=== PATIENT | male | born 1955 | race Two or more races ===

== ENCOUNTER → 2024-08-20 | Outpatient (CLI) | payer OTHER, MEDICAID, SELFPAY ==
[2024-08-20 07:54] LABS: Collection Type, Urine Clean Catch; Squamous Epithelial Cell,Urine 0 /hpf (0-5)
[2024-08-20 08:33] LABS: Basophils % (Auto) 0 % (0-2.5); Eosinophils # (Auto) 0.2 Thou/mm3 (0.0-0.5); Eosinophils % (Auto) 3 % (0-10); Hematocrit 44.9 % (41.0-53.0); Hemoglobin 15.7 g/dL (13.5-16.0); Immature Granulocytes % (Auto) 1 % (0-0); Immature Granulocytes Auto 0.06 Thou/mm3 (0.00-0.00); Lymphocytes # (Auto) 2.7 Thou/mm3 (1.0-4.8); Lymphocytes % (Auto) 34 % (10-50); Mean Corpuscular Hemoglobin 31.2 pg (25.0-35.0); Mean Corpuscular Volume 89 fL (80-100); Monocytes # (Auto) 0.6 Thou/mm3 (0.0-0.8); Monocytes % (Auto) 8 % (0-12); Neutrophils # (Auto) 4.4 Thou/mm3 (1.8-7.7); Neutrophils % (Auto) 55 % (37-80); Nucleated Red Blood Cell % 0 /100 WBC (0); Platelet Count 233 Thou/mm3 (140-440); RDW Standard Deviation 42.4 fL (35.1-43.9); Red Blood Count 5.04 Miln/mm3 (4.50-5.90); White Blood Count 8.1 Thou/mm3 (3.8-10.6)
[2024-08-20 08:52] LABS: Bacteria,Urine Rare; Bilirubin,Urine Negative (Negative); Blood,Urine Negative (Negative); Clarity,Urine Clear (Clear/Hazy); Color,Urine Yellow (Lt Yel-Yel); Glucose, Urine Negative (Negative); Ketones,Urine Negative (Negative); Leukocyte Esterase,Urine Positive (Negative); Nitrite,Urine Negative (Negative); PH,Urine 5.5 (5.0-7.0); Protein,Urine 1+ (Neg - Trace); RBC,Urine 4 /hpf (0-3); Specific Gravity,Urine 1.035 (1.001-1.035); Urobilinogen,Urine Negative mg/dL (0.0-1.0); WBC,Urine 7 /hpf (0-5)
[2024-08-20 08:54] LABS: Prostate Specific Antigen 0.66 ng/mL (0-4.00)
[2024-08-20 08:58] LABS: Alanine Aminotransferase 92 U/L (10-49); Albumin, Serum 4.7 gm/dL (3.4-4.8); Alkaline Phosphatase 74 U/L (46-116); Anion Gap 6 (7-16); Aspartate Amino Transferase 60 U/L (0-34); BUN/Creatinine Ratio 23 Ratio (12-20); Bilirubin,Total 0.9 mg/dL (0.3-1.2); Blood Urea Nitrogen 21 mg/dL (9-23); Calcium 9.5 mg/dL (8.3-10.6); Calcium (Corrected) 9.5 mg/dL (8.5-10.1); Carbon Dioxide 29.2 mMol/L (20.0-31.0); Cardiac Risk Estimate 3.5 RATIO (4.0-6.7); Chloride 106 mMol/L (98-107); Cholesterol 191 mg/dL (132-200); Creatinine (Component) 0.9 mg/dL (0.6-1.3); Globulin 2.4 gm/dL (2.3-3.5); Glucose 102 mg/dL (74-106); HDL Cholesterol 54 mg/dL (40-60); LDL Cholesterol,Calculated 113 mg/dL (0-130); Osmolality,Calculated 284 (275-295); Sodium 141 mMol/L (136-145); Thyroid Stimulating Hormone 3.72 uIU/mL (0.55-4.78); Total Protein 7.1 gm/dL (5.7-8.2); Triglycerides 120 mg/dL (30-150); eGFR > 60 See Note
[2024-08-20 09:18] LABS: Vitamin B12 1822 pg/mL (211-911)
== END | disposition home or self-care (01) ==
PROVIDERS: PCP Family Medicine; Referring Provider Family Medicine; Visit Provider Family Medicine
DX: Z00.00 Encounter for general adult medical examination without abnormal findings (principal); I10 Essential (primary) hypertension; N40.0 Benign prostatic hyperplasia without lower urinary tract symptoms; R53.83 Other fatigue; E78.2 Mixed hyperlipidemia
CPT/HCPCS: 36415; 80053; 80061; 81001; 82607; 84153; 84443; 85025

== ENCOUNTER 2025-02-18 17:23 | Emergency (ER) | payer OTHER, MEDICAID, SELFPAY ==
[2025-02-18 17:40] VITALS: BP 162/93; PULSE 89; RESP 20; TEMP 37.2; O2SAT 97; BMI 31.0
--- NOTE | 2025-02-18 17:45 | EKG_ITS ---
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[id number] Requested By: Jose Yoo Order Number: [id number] Reading MD: Jose Yoo Measurements Intervals [place] Rate: 97 P: 24 VT: 148 QRS: -27 QRSD: 87 T: 19 QT: 319 QTc: 406 Interpretive Statements SINUS RHYTHM LOW QRS VOLTAGE IN PRECORDIAL LEADS [QRS DEFLECTION < 1.0 mV IN CHEST LEADS] LEFT VENTRICULAR HYPERTROPHY AND ST-T CHANGE [VOLTAGE CRITERIA PLUS ST/T ABNORMALITY] POSSIBLE ANTERIOR MYOCARDIAL INFARCTION , PROBABLY OLD [30 ms Q WAVE IN V3/V4, OR R < 0.2 mV IN V4] Compared to ECG 10/26/2023 20:41:55 ST (T wave) deviation now present Myocardial infarct finding now present Sinus bradycardia no longer present /store/S0/[id number].pdf
--- NOTE | 2025-02-18 17:46 | PD.EDRME ---
Rapid Medical Screening Exam RME Arrival date/time: 02/18/25 17:23 69-year-old male with no known medical history presents to the emergency room with a chief complaint of abdominal pain, chest pain, vomiting x 1 day I have greeted and performed a focused initial assessment of this patient. A comprehensive ED assessment and evaluation of the patient, analysis of all test results, and completion of the medical decision making process will be conducted by additional ED providers. Chief Complaint: Abdominal Pain Vital signs: Vital Signs Temperature 99 F 02/18/25 17:40 Pulse Rate 89 02/18/25 17:40 Respiratory Rate 20 02/18/25 17:40 Blood Pressure 162/93 H 02/18/25 17:40 Pulse Oximetry (%) 97 02/18/25 17:40 Oxygen Delivery Method Room Air 02/18/25 17:40 Vital signs reviewed by provider: Yes
[2025-02-18 18:00] LABS: Collection Type, Urine Clean Catch
[2025-02-18] MEDS: ONDANSETRON ODT 4 MG TABRAP PO (18:02)
[2025-02-18 18:07] LABS: Basophils # (Auto) 0.1 Thou/mm3 (0.0-0.2); Basophils % (Auto) 1 % (0-2.5); Eosinophils # (Auto) 0.2 Thou/mm3 (0.0-0.5); Eosinophils % (Auto) 2 % (0-10); Hematocrit 48.2 % (41.0-53.0); Hemoglobin 16.6 g/dL (13.5-16.0); Immature Granulocytes Auto 0.09 Thou/mm3 (0.00-0.00); Lymphocytes # (Auto) 3.6 Thou/mm3 (1.0-4.8); Lymphocytes % (Auto) 32 % (10-50); Mean Corpuscular HGB Conc 34.4 g/dl (31.0-37.0); Mean Corpuscular Hemoglobin 31.1 pg (25.0-35.0); Mean Corpuscular Volume 90 fL (80-100); Monocytes # (Auto) 0.9 Thou/mm3 (0.0-0.8); Monocytes % (Auto) 8 % (0-12); Neutrophils # (Auto) 6.3 Thou/mm3 (1.8-7.7); Neutrophils % (Auto) 57 % (37-80); Nucleated Red Blood Cell # 0.00 Thou/mm3 (0.00-0.00); Nucleated Red Blood Cell % 0 /100 WBC (0); Platelet Count 269 Thou/mm3 (140-440); RDW Standard Deviation 43.6 fL (35.1-43.9); Red Blood Count 5.34 Miln/mm3 (4.50-5.90); White Blood Count 11.1 Thou/mm3 (3.8-10.6)
[2025-02-18 18:21] LABS: B-Type Natriuretic Peptide < 20 pg/mL (0-100)
[2025-02-18 18:22] LABS: Alanine Aminotransferase 167 U/L (10-49); Albumin, Serum 5.1 gm/dL (3.4-4.8); Albumin/Globulin Ratio 1.6 (1.2-2.2); Alkaline Phosphatase 88 U/L (46-116); Anion Gap 10 (7-16); Aspartate Amino Transferase 137 U/L (0-34); BUN/Creatinine Ratio 9 Ratio (12-20); Bilirubin,Total 0.9 mg/dL (0.3-1.2); Blood Urea Nitrogen 11 mg/dL (9-23); Calcium 10.0 mg/dL (8.3-10.6); Calcium (Corrected) 10.0 mg/dL (8.5-10.1); Carbon Dioxide 24.8 mMol/L (20.0-31.0); Chloride 103 mMol/L (98-107); Creatinine (Component) 1.2 mg/dL (0.6-1.3); Estimated Creatinine Clearance 65.0 mL/min (>60); Globulin 3.2 gm/dL (2.3-3.5); Glucose 113 mg/dL (74-106); Osmolality,Calculated 276 (275-295); Potassium 4.4 mMol/L (3.4-5.1); Sodium 138 mMol/L (136-145); Total Protein 8.3 gm/dL (5.7-8.2); Troponin I 0.039 ng/mL (0.0-0.045); eGFR > 60 See Note
[2025-02-18 19:16] LABS: Bacteria,Urine Rare; Bilirubin,Urine Negative (Negative); Blood,Urine Negative (Negative); Clarity,Urine Turbid (Clear/Hazy); Color,Urine Yellow (Lt Yel-Yel); Culture Indicated,Urine Not Indicated; Glucose, Urine Negative (Negative); Hyaline Casts,Urine < 1 /hpf (0-1); Ketones,Urine Negative (Negative); Leukocyte Esterase,Urine Negative (Negative); Nitrite,Urine Negative (Negative); PH,Urine 5.5 (5.0-7.0); Protein,Urine 1+ (Neg - Trace); RBC,Urine 4 /hpf (0-3); Specific Gravity,Urine 1.029 (1.001-1.035); Squamous Epithelial Cell,Urine < 1 /hpf (0-5); Urobilinogen,Urine Negative mg/dL (0.0-1.0); WBC,Urine 1 /hpf (0-5)
--- NOTE | 2025-02-18 20:26 | XR_ITS ---
Examination: CT abdomen and pelvis without contrast. Coronal 3-D reconstructions. Sagittal 2-D reconstructions. Date and time of exam:February 18, [id number] hrs. Bilateral flank pain mid abdominal pain today CTDI: vol (mGy): 7.83 DLP: (mGycm): 459 Technique: Axial images of the abdomen have been obtained, 3 mm slice thickness Intravenous contrast material has not been administered. Low dose protocols were performed. One or more of the following dose reduction techniques were used; automated exposure control, adjustment of the mA and/or KV according to patient size, use of iterative reconstruction technique. Findings: Fatty infiltration throughout the liver, no focal liver or splenic lesions Absent gallbladder No pancreatic or adrenal mass No renal or ureteral calculi, no hydronephrosis Aorta normal size 12 mm fat-containing umbilical hernia No bowel obstruction No pericecal inflammatory change Scattered colonic diverticulosis Urinary bladder intact Mild prostatomegaly Moderate osteopenia Impression: Fatty infiltration throughout the liver No renal or ureteral calculi, no hydronephrosis No CT findings of appendicitis or diverticulitis No bowel obstruction
--- NOTE | 2025-02-18 20:26 | EDNOTE_ITS ---
ED General RME/HPI General Chief complaint: Abdominal Pain Stated complaint: ABD/CHEST/BACK PAIN, NAUSEA Time Seen by Provider: 02/18/25 20:20 Arrival date/time: 02/18/25 17:23 CC: Chest pain upper abdominal pain with nausea and loss of appetite HPI ongoing for the past 3 days but has had prior episodes. Patient is now also complaining of bilateral flank pain which is not mentioned in the initial assessment. This been ongoing for 2 days. Patient denies any painful urination bloody urination or inability to urinate. Patient denies diarrhea or constipation. Chest pain is in the center abdomen just above the epigastrium is where the patient points to. Patient appears in mild discomfort but not in any acute distress. RME / HPI RME / HPI narrative: 02/18/25 17:23 69-year-old male with no known medical history presents to the emergency room with a chief complaint of abdominal pain, chest pain, vomiting x 1 day I have greeted and performed a focused initial assessment of this patient. A comprehensive ED assessment and evaluation of the patient, analysis of all test results, and completion of the medical decision making process will be conducted by additional ED providers. Related Data Home Medications ?Medication ?Instructions ?Recorded ?Confirmed metoprolol tartrate 25 mg tablet 25 mg PO BID 01/05/19 01/05/19 omeprazole 20 mg capsule,delayed 20 mg PO QDAY 9 01/05/19 release Previous Rx's ?Medication ?Instructions ?Recorded aspirin 81 mg tablet,delayed 81 mg PO DAILY #30 tabs 0 11/14/17 release (Aspir-Low) atorvastatin 20 mg tablet 20 mg PO QDAY #30 tabs 11/14 famotidine 20 mg tablet (Pepcid) 20 mg PO BID #60 tabs 11/14/17 nitroglycerin 0.4 mg sublingual 0.4 mg buccal [id number] E PRN chest 11/14/17 tablet pain #30 tabs albuterol sulfate 90 mcg/actuation 2 puff inhalation Q 6H PRN 04/04/20 aerosol inhaler (ProAir HFA) shortness of breath or wh eezing #18 grams meloxicam 7.5 mg tablet 7.5 mg PO QDAY #10 tabs 10/21 07/13 albuterol sulfate 90 mcg/actuation 1 puff inhalation Q ID PRN 07/26/22 aerosol inhaler shortness of breath or wheez ing #8.5 grams prednisone 20 mg tablet See Taper PO QDAY #15 tabs 0 07/26/22 acetaminophen-caffeine 500 mg-65 1 tab PO Q8H PRN pain #30 tabs 10/26/23 mg tablet (Excedrin Tension Headache) pantoprazole 20 mg tablet,delayed 20 mg PO QDAY #30 ta bs 02/18/25 release (Protonix) Allergies Allergy/AdvReac Type Severity Reaction Status Date / Time ciprofloxacin (From Cipro) Allergy Intermediate Hives Verified 02/18/25 18:03 Penicillins Allergy Intermediate RASH Verified 02/18/25 17:26 Iodinated Contrast Media Allergy Rash Verified 02/18/25 17:26 (Iodinated Contrast- Oral and IV Dye) Review of Systems Review of Systems Narrative Review of Systems: GEN: No fever, no chills, no weight loss EYES: No discharge, no visual changes, no pain HEENT: No ear pain, no congestion, no sore throat PULM: No shortness of breath, no cough, no congestion CV: No chest pain, no dyspnea on exertion, no palpitations GI: + nausea, + vomiting, no diarrhea, no pain, no constipation : No frequency, no urgency, no dysuria MUSC/SKEL: No joint pain, + back pain SKIN: No rash PSYCH: No hallucinations, no depression HEME/LYMPH: No easy bleeding or bruising tendencies NEURO: No weakness, no headache Past Medical History Past Medical History NEUROLOGIC: Negative Neurological Disorders, Cerebrovascular Accident, Transient Ischemic Attacks (TIA), Dementia, Alzheimer's Disease, Parkinson's Disease, Brain Tumor, Meningitis, Seizures, Epilepsy, Multiple Sclerosis, Cerebral Palsy, Amyotrophic Lateral Sclerosis (ALS/Lesia Gehrig's), Guillain-Wrightwood Syndrome, Spina Bifida, Paralysis, Peripheral Neuropathy, Rice's Palsy, Subdural Hematoma, Migraine, Head Trauma, Spinal Cord Injury or Traumatic Brain Injury CARDIAC: Positive Angina, Hypercholesterolemia and Hypertension; Negative Cardiac Disorders, Myocardial Infarction, Cardiac Arrhythmia, Atrial Fibrillation, Heart Murmur, Coronary Artery Disease, Atherosclerotic Heart Disease, Peripheral Vascular Disease, Aneurysm, Congestive Heart Failure, Congenital Heart Disease, Valvular Heart Disease, Rheumatic Fever, Cardiomyopathy, Edema, Pericarditis, Cellulitis, Deep Vein Thrombosis, Hypotension or Varicose Veins RESPIRATORY: Positive Cystic Fibrosis; Negative Chronic Obstructive Pulmonary Disease (COPD), Asthma, Bronchitis, Emphysema, Pneumonia, Pulmonary Fibrosis, Tuberculosis, Pulmonary Embolism, Pulmonary Edema or Sleep Apnea GASTROINTESTINAL: Positive Gastrointestinal Disorders, Hepatitis, Coyle's Esophagus, Ulcer, Hiatal Hernia and Gastroesophageal Reflux Disease; Negative Cirrhosis, Pancreatitis, Celiac Disease, Gall Bladder Disease, Gastrointestinal Bleed, Esophageal Varices, Colitis, Ulcerative Colitis, Diverticulitis, Diverticulosis, Colorectal Cancer, Irritable Bowel, Crohn's Disease, Obstructive Bowel, Hemorrhoids or Obesity GENITOURINARY: Negative Genitourinary Disorders, Renal Disease, Kidney Stones, Polycystic Kidney Disease, Neurogenic Bladder, Inguinal Hernia, Dialysis, Prostate Cancer or Benign Prostatic Hyperplasia REPRODUCTIVE: Negative Breast Cancer, Fibroids or Testicular Cancer MUSCULOSKELETAL: Positive Musculoskeletal Disorders and Arthritis; Negative Muscular Dystrophy, Myasthenia Gravis, Marfan's Syndrome, Bone Cancer, Rheumatoid Arthritis, Osteoporosis, Degenerative Disk Disease, Gout, Scoliosis, Carpal Tunnel Syndrome, Fibromyalgia, Fractures, Degenerative Joint Disease, Osteomyelitis or Poliovirus ENT: Negative Head Trauma ENDOCRINE: Positive Hyperthyroidism; Negative Endocrine Disorders, Diabetes Mellitus Type 1, Diabetes Mellitus Type 2, Hypoglycemia, Bladens[place]'s Syndrome, Lowndes's Disease, Hypothyroidism, Parathyroid Disease, Pituitary Disease, Systemic Lupus Erythematosus, Syndrome of Inappropriate Antidiuretic Hormone (SIADH), Adrenal Disease or Graves' Disease HEMATOLOGIC: Negative Blood Disorders, Anemia, Leukemia, Hemophilia, Thalassemia, Sickle Cell Disease or Clotting Problems PSYCHO/SOCIAL: Negative Psychiatric Problems, Schizophrenia, Recreational Drug Use, Bipolar Disorder, Depression, Anxiety, Behavior Problems, Self-Mutilation, Attention Deficit Disorder, Attention Deficit Hyperactivity Disorder, Depression, Post Traumatic Stress Disorder or Eating Disorder OTHER HISTORY: Positive Hospitalization, Blood Transfusion Reaction and Chicken Pox; Negative Autoimmune Disease, Down Syndrome, Autism, Developmental Delay, Shingles, Falls, Blood Transfusions, Anesthesia Reactions, Organ Transplant, Chemotherapy, Radiation Therapy, Hyperbaric Therapy, MRSA, VRSA, Vancomycin- Resistant Enterococci, Human Immunodeficiency Virus (HIV), Measles, Mumps, Rubella (Hebrew Measles), Pertussis, Clostridium Difficile, Cancer, Breast Cancer, Cervical Cancer, Colorectal Cancer, Lung Cancer, Ovarian Cancer, Prostate Cancer or Testicular Cancer Family History FAMILY HISTORY: Positive Family Psychiatric Problems, Family Cardiac Disorders, Family Cancer and Family Surgery; Negative Family Anesthesia Reaction Surgical History SURGICAL: Positive Angiogram, Abdominal Surgery and Bowel Surgery; Negative Cardiac Surgery, Open Heart Surgery, Coronary Artery Bypass Graft, Valve Replacement, Vascular Surgery, Coronary Stent, Cardiac Catheterization, Pacemaker, Auto Implanted Cardiovert Defib, Carotid Endarterectomy, Endocrine Surgery, Thyroidectomy, Ear Surgery, Tympanostomy Tube, Eye Surgery, Nose Surgery, Oral Surgery, Tonsillectomy, Adenoidectomy, Cochlear Implant, Corneal Transplant, Throat Surgery, Tracheostomy, Gastric Bypass Surgery, Gastrostomy, Nephrectomy, Transurethral Resection, Joint Replacement, Amputation, Open Reduction Internal Fixation, Arthroscopy, Neurologic Surgery, Brain Shunt, Vasectomy or Organ Transplant Social History SMOKING STATUS: Never smoker SUBSTANCE USE: does not use ED Exam Narrative Physical exam: [General: Obese in mild, but not in any acute distress Head normocephalic HEENT: Within acceptable limits Neck is supple nontender Chest equal chest rise nontender to palpation Respiratory: Clear to auscultation no wheezes crackles or rubs CV: Rate rhythm is regular no murmurs rubs or clicks Abdomen is distended secondary to body habitus soft mild epigastric pain with palpation no reflexive guarding no rebound tenderness. positive bowel sounds all 4 quadrants Back: right CVA tenderness no no left CVA tenderness, no spinous process tenderness from cervical spine thoracic and lumbar spine Skin: Intact no petechiae rash induration ulceration or crepitus Extremities: Moving all extremity against resistance cap refill less than 2 seconds neurosensory intact Neuro: Awake alert oriented x3 Glascow coma 15 no focal deficits] Course Quality Measures none Orders Category Date Time Status Bedside Influenza A&B Antigen Test NOW Care 02/18/25 17:45 Completed EKG (ED ONLY) *Do not use* NOW Care 02/18/25 17:[address] abdomen pelvis wo con Stat Exams 02/18/25 20:26 Completed EKG (ED Only) Stat Exams 02/18/25 17:45 Draft BNP [B-Type Natriuretic Peptide] Stat Lab 02/18/25 17:52 Completed CBC Stat Lab 02/18/25 17:52 Completed CMP [Comprehensive Metabolic Panel] Stat Lab 02/18/25 17:52 Completed COVID-19 Antigen (In-House) Stat Lab 02/18/25 21:00 Completed Troponin I Stat Lab 02/18/25 17:52 Completed UA, C/S IF [Urinalysis, C/S if Indicated] Stat Lab 02/18/25 17:52 Completed Ondansetron Odt [Zofran Odt] Med 02/18/25 17:45 Discontinued 4 mg PO X1 ONE Vital Signs Vital signs: Vital Signs Temperature 99 F 02/18/25 17:40 Pulse Rate 89 02/18/25 17:40 Respiratory Rate 20 02/18/25 17:40 Blood Pressure 162/93 H 02/18/25 17:40 Pulse Oximetry (%) 97 02/18/25 17:40 Oxygen Delivery Method Room Air 02/18/25 17:40 Discharge Plan Plan Patient Disposition: HOME (Self Care) Patient condition on transfer: Stable Prescriptions/Referrals Prescriptions/Med Rec: New pantoprazole [Protonix] 20 mg tablet,delayed release (DR/EC) 20 mg PO QDAY Qty: 30 0RF No Action aspirin [Aspir-Low] 81 mg Tablet,Delayed Release (Dr/Ec) 81 mg PO DAILY Qty: 30 0RF famotidine [Pepcid] 20 mg tablet 20 mg PO BID Qty: 60 0RF nitroglycerin 0.4 mg tablet, sublingual 0.4 mg BUCCAL [id number] PRN (Reason: chest pain) Qty: 30 0RF atorvastatin 20 mg tablet 20 mg PO QDAY Qty: 30 0RF omeprazole 20 mg Capsule,Delayed Release(Dr/Ec) 20 mg PO QDAY metoprolol tartrate 25 mg Tablet 25 mg PO BID albuterol sulfate [ProAir HFA] 90 mcg/actuation HFA aerosol inhaler 2 puff inhalation Q6H PRN (Reason: shortness of breath or wheezing) Qty: 18 0RF meloxicam 7.5 mg tablet 7.5 mg PO QDAY Qty: 10 0RF prednisone 20 mg tablet See Taper PO QDAY Qty: 15 0RF Taper: Prednisone Taper 60 mg DAILY for 5 Days and 0 Hour Rx Instructions: 60mg PO QD x5days albuterol sulfate 90 mcg/actuation HFA aerosol inhaler 1 puff inhalation QID PRN (Reason: shortness of breath or wheezing) Qty: 8.5 0RF Excedrin Tension Headache 500-65 mg tablet 1 tab PO Q8H PRN (Reason: pain) Qty: 30 0RF Referrals: Jerson Mccarty MD [Primary Care Provider, Family Practice] - In 1 week Problem List Clinical Impression: Flank pain, Chest pain Patient/Caregiver Discharge Instructions Education Materials: Abdominal Pain, ED Chest Pain, Noncardiac Additional Instructions: Avoid greasy spicy and fatty foods, follow-up with your primary care doctor. Print Language: Chinese Stand Alone Forms: Desi Award Info., Work/School Release, Patient Portal Info Letter SHWETHA Supervising Physician SHWETHA Supervising Physician: Josh Aguilar ENP [facility] Clinical Information Provided by: patient Medical Records reviewed [facility] Meds/Rx considered, not ordered None Labs/Rad/Tests considered, not ordered None Chronic Illness/Social Conditions which may negatively complicate care or outcome(s)-explain: None or not applicable EKG Interpretation EKG #1: EKG Interpretation: EKG performed at 1747 shows a ventricular rate of 97 MA interval 148 QRS of 87 QTc of 373 this is normal sinus rhythm. Labs Labs: interpreted by [place] Lab(s) Interpretation(s): CBC shows no significant leukocytosis anemia or thrombocytopenia. CMP shows no significant electrolyte imbalances other than a glucose of 113. T. bili is normal AST is mildly elevated 137 ALT of 167 alk phos at 88. Troponin at 0.039 BNP undetectable Urine is turbid 1+ protein. Leukocyte esterase negative nitrite negative for RBCs rare bacteria. Medication Administration(s) Medication Administration History Discontinued Medications Ondansetron HCl (Ondansetron Odt 4 Mg Tabrap) 4 mg PO X1 ONE; Protocol Stop: 02/18/25 17:46 Last Admin: 02/18/25 18:02 Dose: 4 mg Documented By:
[2025-02-18 20:46] VITALS: BP 149/92; PULSE 69; RESP 18; TEMP 37.2; O2SAT 98
[2025-02-18 21:30] VITALS: BP 142/114; PULSE 65; RESP 18; TEMP 37.2; O2SAT 97
[2025-02-18 21:34] LABS: COVID-19 Antigen (In-House) Negative (Negative)
== END 2025-02-18 21:30 | disposition home or self-care (01) ==
PROVIDERS: Nurse Practitioner Family; Registered Nurse General Practice; Emergency Provider Emergency Medicine; PCP Family Medicine
DX: R07.9 Chest pain, unspecified (principal); R10.10 Upper abdominal pain, unspecified; R11.2 Nausea with vomiting, unspecified; R94.31 Abnormal electrocardiogram [ECG] [EKG]; E78.00 Pure hypercholesterolemia, unspecified; I10 Essential (primary) hypertension
CPT/HCPCS: 36415; 74176; 80053; 81001; 83880; 84484; 85025; 87400; 87811; 93005; 99284; Q0162